=== PATIENT | female | born 1975 | race Caucasian/White ===

== ENCOUNTER 2018-08-22 15:07 | Outpatient (REF) | payer BC, SELFPAY ==
[2018-08-22 19:02] LABS: HCT 38.9 % (36.0-46.0); HGB 13.4 g/dL (12.0-15.5); Mean Corp. HGB Concentration 34.4 g/dL (32.0-36.0); Mean Corpuscular Hemoglobin 32.4 pg (27.0-33.0); Mean Platelet Volume 11.5 fL (8.0-11.0); RBC 4.14 m/cumm (4.00-5.20); RBC Distribution Width 11.7 % (11.7-14.6); White Blood Cell Count 7.32 k/cumm (4.4-10.8)
[2018-08-22 19:09] LABS: ALT 53 U/L (12-78); AST 33 U/L (15-37); Albumin 3.4 g/dL (3.4-5.0); Alkaline Phosphatase 66 U/L (46-116); Anion Gap 7.9 mmol/L (3-11); BUN 12 mg/dL (7-18); Bilirubin, Total 0.4 mg/dL (0.2-1.0); CO2 30.1 mmol/L (21.0-32.0); CREATININE 0.94 mg/dL (0.55-1.02); Calcium 9.2 mg/dL (8.5-10.1); Chloride 104 mmol/L (98-107); Glucose 110 mg/dL (70-100); Potassium 4.5 mmol/L (3.5-5.1); Sodium 142 mmol/L (136-145); Total Protein 7.6 g/dL (6.4-8.2)
[2018-08-22 19:32] LABS: Platelet Count 261 x1000/uL (130-400)
[2018-08-24 15:56] LABS: Hepatitis C Ab w Rflx HCV PCR Reactive (NEGAT)
[2018-08-25 16:38] LABS: HCV RNA Detection Quantitative 65151 IU/mL (UNDECT)
== END 2018-08-22 15:27 ==
LOC: NCHCN 15:07
PROVIDERS: PCP Physician Assistant Medical; Visit Provider Physician Assistant Medical
DX: B19.20 Unspecified viral hepatitis C without hepatic coma (principal)
CPT/HCPCS: 80053; 85027; 86803; 87522

== ENCOUNTER 2021-04-22 15:29 | Outpatient (REF) | payer SELFPAY ==
--- OUTSIDE RECORDS SUMMARY | 2021-04-22 15:33 | XMS_ITS ---
:1975 Author Care Team Providers Name Role Phone LUIS JACKMAN MD Primary Care Provider [phone] TANVIR ESCALONA MD General Surgeon [phone] Allergies Code Code System Name Reaction Severity Status Onset [id number] RxNorm Aldara ? ? Active ? 737683 RxNorm Condylox Hives ? Active ? Penicillins Hives ? Active ? 8463 RxNorm Podofilox ? ? Active ? Wellbutrin ? ? Active ? Medications Name Status Start Date Stop Date ? ? Cipro 250 mg tablet Completed 01/30/2009 02/02/2009 1 (one) Tablet: bid - twice daily Cipro 500 mg tablet Completed 02/08/2009 02/15/2009 1 Tablet: BID Cleocin HCl 300 mg capsule Completed 03/12/201003/19 1 (one) Capsule: twice daily Condylox 0.5 % topical gel Completed 12/04/201004/29 1 layer: apply twice a day 3 days in a row. Epclusa 400 mg-100 mg tablet Completed ? Estarylla 0.25 mg-35 mcg tablet Active ? Not available TAKE 1 TABLET BY MOUTH EVERY DAY lidocaine HCl 2 % mucosal jelly Completed 09/25/2015 11/11/2016 1 (one) Gel: every six hours, as needed lorazepam 0.5 mg tablet Active 03/17/2019 Not avai lable Take by oral route as needed for 15 days. multivitamin Active ? Not available 1 tab daily [place] 5 mg-325 mg tablet Completed ? 020 Take 1 tablet every 4-6 hours by oral route as needed for 5 day s. ProAir HFA 90 mcg/actuation aerosol inhaler Completed ? 05/30/2019 Inhale 2 puffs every 4 hours by inhalation route as needed. triamcinolone acetonide 0.1 % topical ointment Active ? Not available APPLY THIN LAYER EXTERNALLY TO THE AFFECTED AREA TWICE DAILY Vagifem 10 mcg vaginal tablet Active ? No t available 1 Tablet: twice weekly Problems Name Status Onset Date Source ? 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 Cystitis Active 03/17/2019 ? Cyst of Ovary Unknown 03/17/2019 ? Leukorrhea Active 03/17/2019 ? Dysuria Active 03/17/2019 ? Anxiety Active 03/21/2019 ? Hepatitis C Carrier Active 03/21/2019 ? Verruca Vulgaris Active ? History Hemorrhoids Active ? ? Chronic Cystitis Active ? History Subacute and Chronic Vulvitis Active ? Hi story History of Calculus of Kidney Active ? ? Gynecologic Examination Unknown ? History Screening Mammography Unknown ? History Endocrine/metabolic Screening Unknown ? Hi story Pelvic and Perineal Pain Active ? History Evaluation Procedure Unknown ? History SNOMED CT Concept Unknown ? History Vagina Finding Unknown ? History Procedure by Method Unknown ? History Procedures Date Name Performed by ? 06/05/2019 Hemorrhoidectomy Information not avai lable Notes: external hemorrhoids 05/24/2002 Leep Information not avai lable Notes: Focal AMANDEEP 2 04/19/2019 MAMMO, Screening, Tomosynthesis, [facility] (Internal) Bilateral [address], [place] [id number] (Work Place) 04/24/2020 MAMMO, Screening, Tomosynthesis, [facility] (Internal) Bilateral [address] [place] [address] (Work Place) Notes: Nephrolithiasis 2002 Results Lab Results Date Name Specimen Result Interpretation Description Value Range Status Address ? 04/19/2019 Pap Test, MISC - Hpv see report ? [facility] : [address] ? ? MISC - Pap see report ? Final [facility] (Internal) : [address] ? ? MISC - Report (see below) ? Final [facility] ab (Internal) : [address] 01/31/2019 Hepatitis C S - HCV RNA undetected undetecte d Final [facility] Virus RNA, Detect/qu IU/mL IU/mL Cou ntry Quant, PCR, ant, S [facility] Lab Serum or (Interna l): Plasma [address] 01/31/2019 CMP, Serum or S - g/r 86 mg/dL 74-106 [place] [facility] [place] Plasma mg/dL [facility] ([facility] : [address] ? ? S - Bun 11 mg/dL 7-17 mg/dL [facility] (Internal) : [address] ? ? S - Crea 0.70 mg/dL 0.52-1.04 Final [facility] th mg/dL [facility] (Internal) : [address] ? ? S - Ca 9.2 mg/dL 8.4-10.2 [facility] mg/dL [facility] (Internal) : [address] ? ? S - Na 140 mmol/L 137-145 [facility] mmol/L [facility] (Internal) : [address] ? ? S - K 4.3 mmol/L 3.5-5.1 [facility] mmol/L [facility] (Internal) : [address] ? ? S - Cl 106 mmol/L 98-107 Final [facility] mmol/L [facility] (Internal) : [address] ? ? S - Tco2 27.0 mmol/L 22.0-30.0 Final No rth mmol/L [facility] (Internal) : [address] ? ? S - Tp 7.5 g/dL 6.3-8.2 [facility] g/dL [facility] (Internal) : [address] ? ? S - Alb 4.0 g/dL 3.5-5.0 Final [facility] g/dL [facility] (Internal) : [address] ? ? S - Tbil 0.4 mg/dL 0.2-1.3 Final [facility] mg/dL [facility] (Internal) : [address] ? ? S - Alp 74 U/L 50-136 U/L Final [facility] (Internal) : [address] ? ? S - Alt 17 U/L 9-52 U/L Final [facility] (Sgpt) [facility] (Internal) : [address] ? ? S - Ast 28 U/L 14-36 U/L Final [facility] (Sgot) [facility] (Internal) : [address] t 01/31/2019 CBC W/ Auto BLD - Wbc 8.3 10*3/uL 5.0-10.0 F inal [facility] Diff 10*3/uL [facility] (Internal) : [address] ? ? BLD - Rbc 4.37 4.10-5.30 Final [facility] 10*6/uL 10*6/uL [facility] (Internal) : [address] ? ? BLD - Hgb 13.7 g/dL 12.0-16.0 Final Nort h g/dL [facility] (Internal) : [address] ? ? BLD - Hct 41.1 % 37.0-47.0 % Final [facility] (Internal) : [address] ? ? BLD - Mcv 94.1 fL 80.0-96.0 Final [facility] (Internal) : [address] ? ? BLD - Mch 31.4 pg 26.0-32.0 Final [facility] (Internal) : [address] ? ? BLD - Mchc 33.3 g/dL 31.0-35.0 Final Nort [facility] g/dL [facility] (Internal) : [address] ? ? BLD - Rdw 12.0 % 11.5-14.5 % Final [facility] (Internal) : [address] ? ? BLD - Plt 243 10*3/uL 130-450 Final Nort h 10*3/uL [facility] (Internal) : [address] ? ? BLD - Anc 5.76 ? Final [facility] 10*3/uL [facility] (Internal) : [address] ? ? BLD - Neutro 69.7 % 40.0-75.0 % Final Nort [facility] (Internal) : [address] ? ? BLD - Lymph 21.0 % 20.0-50.0 % Final [facility] (Internal) : [address] ? ? BLD - [place] 6.4 % 2.0-10.0 % Final [facility] (Internal) : [address] ? ? BLD - Eos 1.9 % 1.0-6.0 % Final [facility] (Internal) : [address] ? ? BLD - Baso 0.8 % 0.0-1.0 % Final [facility] (Internal) : [address] Dylanbrenda brittni ? ? BLD - Ig 0.2 % 0.0-0.9 % Final [facility] (Internal) : [address] 09/01/2018 HIV (1+2) Ab S - HIV 1/2 negative negat [facility] Screen, Serum Antigen Co untry and Hospital L ab Antibody (Interna l): [address] 09/01/2018 Hepatitis C S - HCV 2 undetected [facility] Genotype, Genotype, Coun try Serum or S Hospital Lab Plasma (Internal) : [address] 09/01/2018 Prothrombin BLD - Pt 9.9 S 9.1-11.7 S [facility] (Internal) : [address] ? ? BLD - Inr 1.0 ? Final [facility] (Internal) : [address] Past Encounters 04/24/2020 Gynecologic Examination; Screening Mammo graphy; Pruritic Rash; Surveillance of Oral Contraception; Vaginal Dryness Dariusz Herbert MD: [address] [place] [phone], Ph. Social History Tobacco Smoking Status Current Every Day Smoker Notes: 5- 10 cigarettes daily Vaccine List Vaccine Type rubella Plan of Care Reminders Provider Appointments None ? ? recorded. Lab None ? ? recorded. Referral None ? ? recorded. Procedures None ? ? recorded. Surgeries None ? ? recorded. Imaging None ? ? recorded. Vitals 04/24/2020 02:20PM HME 20 Weight Blood Pressure 54.88 kg 116/64 mm[Hg] 04/19/2019 02:20PM E 20 Height Weight BMI Blood Pressure 157.48 cm 58.24 kg 23.5 kg/m2 120/80 mm[Hg] 03/17/2019 11:00AM Office 15 Height Weight BMI Blood Pressure 157.48 cm 60.74 kg 24.5 kg/m2 122/78 mm[Hg] 11/11/2016 Height Weight Blood Pressure 160.02 cm 59.59 kg 108/66 mm[Hg] 09/25/2015 Height Weight Blood Pressure 160.02 cm 57.61 kg 98/56 mm[Hg] 02/01/2013 Height Weight Blood Pressure 160.02 cm 53.98 kg 114/60 mm[Hg] 01/15/2012 Height Weight Blood Pressure 160.02 cm 58.06 kg 112/62 mm[Hg] 08/20/2010 Height Weight Blood Pressure 160.02 cm 61.69 kg 122/70 mm[Hg] 03/12/2010 Height Weight Blood Pressure 160.02 cm 58.74 kg 102/66 mm[Hg] 08/12/2009 Height Weight Blood Pressure 160.02 cm 56.47 kg 112/70 mm[Hg] 02/18/2009 Height Weight Blood Pressure 160.02 cm 56.93 kg 104/60 mm[Hg] 06/25/2008 Height Weight Blood Pressure 160.02 cm 55.57 kg 108/70 mm[Hg] 06/06/2007 Weight Blood Pressure 55.79 kg 106/54 mm[Hg] 10/15/2006 Height Weight Blood Pressure 160.02 cm 53.07 kg 108/60 mm[Hg] 06/18/2006 Height Weight Blood Pressure 160.02 cm 53.98 kg 110/70 mm[Hg] 05/28/2006 Height Weight Blood Pressure 160.02 cm 53.52 kg 100/60 mm[Hg] 05/27/2005 Height Weight Blood Pressure 160.02 cm 57.61 kg 110/66 mm[Hg] 08/04/2004 Height Weight Blood Pressure 160.02 cm 57.15 kg 98/60 mm[Hg]
[2021-04-28 15:32] LABS: Helicobacter pylori Ag, Feces Positive (Negative)
== END 2021-04-22 15:30 | disposition home or self-care (01) ==
LOC: NCHCN 15:29
PROVIDERS: PCP Physician Assistant Medical; Visit Provider Nurse Practitioner Family
DX: R10.9 Unspecified abdominal pain (principal)
CPT/HCPCS: 87338

== ENCOUNTER 2023-10-06 20:04 | Outpatient (REF) | payer SELFPAY ==
[2023-10-06 20:48] LABS: Abs Immature Grans 0.01 10^3/uL (0.0-0.06); Absolute Basophil Count 0.07 10^3/uL (0.0-0.2); Absolute Eosinophil Count 0.19 10^3/uL (0.0-0.7); Absolute Lymphocyte Count 2.04 10^3/uL (1.2-3.4); Absolute Monocyte Count 0.49 10^3/uL (0.1-0.8); Absolute Neutrophil Count 4.79 10^3/uL (1.2-6.7); Basophils % 0.9 %; Eosinophils % 2.5 %; HCT 42.4 % (36.0-46.0); HGB 14.4 g/dL (11.2-15.7); Immature Grans % 0.1 %; Lymphocytes % 26.9 %; MCH 31.8 pg (27.0-33.0); MCV 94 fL (80-95); MPV 11.2 fL (8.0-11.0); Monocytes % 6.5 %; Neutrophils % 63.1 %; Platelet Count 272 10^3/uL (130-400); RBC 4.53 10^6/uL (3.93-5.22); RDW 11.6 % (11.7-14.6); RDW-SD 39.8 fL; WBC 7.59 10^3/uL (4.4-10.8)
[2023-10-06 20:56] LABS: ESR 5 mm/hr (0-20)
[2023-10-06 21:01] LABS: ALT 22 U/L (14-59); AST 22 U/L (15-37); Albumin 3.8 g/dL (3.4-5.0); Alkaline Phosphatase 79 U/L (46-116); Anion Gap 6.9 mmol/L (3-11); BUN 16 mg/dL (7-18); Bilirubin, Total 0.3 mg/dL (0.2-1.0); CO2 30.1 mmol/L (21.0-32.0); Calcium 9.1 mg/dL (8.5-10.1); Chloride 106 mmol/L (98-107); Estimated GFR 69.49 (mL/min/1.73m2); Glucose 100 mg/dL (74-106); Potassium 4.6 mmol/L (3.5-5.1); Sodium 143 mmol/L (136-145)
[2023-10-06 21:02] LABS: C-Reactive Protein < 0.50 mg/dL (<or=0.5)
[2023-10-07 21:49] LABS: Hepatitis C Ab w Rflx HCV PCR Reactive (Negative)
[2023-10-08 08:03] LABS: IgE 57 IU/mL (<158)
[2023-10-08 11:03] LABS: HCV RNA Qualitative Undetected (Undetected)
== END 2023-10-06 20:05 | disposition home or self-care (01) ==
LOC: NCHCN 20:04
PROVIDERS: Visit Provider Internal Medicine
DX: L30.9 Dermatitis, unspecified (principal)
CPT/HCPCS: 80053; 85652; 86803; 87522; 82785; 85025; 86140

== ENCOUNTER 2024-10-23 16:45 | Outpatient (REF) | payer OTHER, SELFPAY ==
[2024-10-23 19:54] LABS: TSH 3.97 uIU/mL (0.36-3.74)
== END 2024-10-23 16:46 | disposition home or self-care (01) ==
LOC: NCHCN 16:45
PROVIDERS: Visit Provider Nurse Practitioner Family
DX: R13.10 Dysphagia, unspecified (principal)
CPT/HCPCS: 84443

== ENCOUNTER 2024-11-10 00:43 | Outpatient (CLI) | payer OTHER, SELFPAY ==
--- NOTE | 2024-11-10 | DI.RAD_ITS ---
Exam(s) RF BARIUM SWALLOW EXAM: RF BARIUM SWALLOW CLINICAL HISTORY: Dysphagia, R13.10 TECHNIQUE: 2D and realtime digital imaging was performed. CONTRAST MATERIAL: Thick and thin barium and barium tablet were administered. COMPARISON: No exams were available for comparison FINDINGS: The PA and lateral chest films show normal heart size and clear lung quinones. The lateral manager staffing view of the neck is unremarkable. Esophagus: The patient swallowed barium without difficulty. Noevidence for mucosal erosions. Nofold thickening. No mass is visible. Nostricture. Motility: There is a normal primary stripping wave. No tertiary contractions were noted. There is no hiatal hernia. Nogastroesophageal reflux was observed during the exam. IMPRESSION: Normal barium swallow. RADIATION DOSE DELIVERED: shirin Gutierrez=6.44 mGy
[2024-11-10] MEDS: Barium Sulfate 98% W/W 140 ML BTL 90 ML PO (10:13)
[2024-11-10] MEDS: Barium Sulfate 700 MG TAB PO (10:13)
[2024-11-10] MEDS: Barium Sulfate 60% W/V 355 ML BTL 150 ML PO (10:14)
[2024-11-10] MEDS: Simethicone/Sod Bicarb/Cit Ac, 4 gram PACKET 1 PACKET PO (10:15)
== END 2024-11-10 01:03 ==
PROVIDERS: PCP Physician Assistant Medical; Visit Provider Nurse Practitioner Family
DX: R13.10 Dysphagia, unspecified (principal)
CPT/HCPCS: 74221; J3490